=== PATIENT | male | born 1980 | race Caucasian/White ===

== ENCOUNTER 2018-04-13 10:37 | Inpatient (IN) | payer MEDICARE, OTHER ==
[~2018-04-13] VITALS: Ht 162.6 cm; Wt 79.9 kg
[~2018-04-13 10:37] MED LIST: CALC0.5C9 PO; CINA30TA2 PO; METH4TAB PO; OXYC-432 PO; SEVE800T8 PO; WARF7.5T PO; [UNRECOGNIZED DRUG - CODE] SQ
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
[2018-04-13] MEDS ORDERED: SODIUM CHLORIDE FLUSH 10ML SYR IVF ONE (11:30)
[2018-04-13 11:47] LABS: BASOPHILS % (AUTO) 2 % (0-1); EOSINOPHILS # (AUTO) 0.05 x10^3/uL (0-0.4); EOSINOPHILS % (AUTO) 1 % (1-7); LYMPHOCYTES # (AUTO) 0.68 x10^3/uL (1-3.4); LYMPHOCYTES % (AUTO) 11 % (22-44); MD NO; MEAN CORPUSCULAR HEMOGLOBIN 29.5 pg (27.5-34.5); MEAN CORPUSCULAR HGB CONC 34.3 g/dL (33.2-36.2); MEAN PLATELET VOLUME 8.2 fL (7.4-10.4); MONOCYTES # (AUTO) 0.61 x10^3/uL (0.2-0.8); MONOCYTES % (AUTO) 10 % (2-9); NEUTROPHILS # (AUTO) 4.76 x10^3/uL (1.8-6.8); NEUTROPHILS % (AUTO) 77 % (42-75); PLATELET COUNT 188 x10^3/uL (130-400); RED BLOOD COUNT 2.75 x10^6/uL (4.38-5.82)
[2018-04-13 11:58] LABS: ALBUMIN 3.3 g/dL (3.4-5.0); ANION GAP 9 mmol/L (5-15); CHLORIDE 90 mmol/L (98-107); CREATININE 9.56 mg/dL (0.7-1.3)
[2018-04-13 12:03] LABS: ALANINE AMINOTRANSFERASE 11 U/L (12-78); ALKALINE PHOSPHATASE 203 U/L (45-117); BILIRUBIN,TOTAL 0.7 mg/dL (0.2-1.0); TOTAL PROTEIN 8.2 g/dL (6.4-8.2)
[2018-04-13] MEDS ORDERED: DEXTROSE 50%, 50ML SYRINGE ONE (13:22)
[2018-04-13] MEDS ORDERED: CALCIUM CHLORIDE 10%, 10ML SYR ONE (13:22)
[2018-04-13] MEDS ORDERED: INSULIN REGULAR 100 UNITS/ML, 3ML VIAL ONE (13:23)
[2018-04-13] MEDS ORDERED: CALCIUM CHLORIDE 10%, 10ML SYR IVPush ONE (13:30)
[2018-04-13] MEDS ORDERED: SODIUM BICARB 8.4%, 50ML SYRINGE IVPush ONE (13:30)
[2018-04-13] MEDS ORDERED: SODIUM CHLORIDE FLUSH 10ML SYR IVF PRN (13:30)
[2018-04-13] MEDS ORDERED: INSULIN REGULAR 100 UNITS/ML, 3ML VIAL IVPush ONE (13:30)
[2018-04-13] MEDS ORDERED: DEXTROSE 50%, 50ML SYRINGE IVPush ONE (13:30)
[2018-04-13] MEDS ORDERED: SODIUM BICARBONATE 1 MEQ/ML, 50ML VIAL IVPush ONE (14:00)
[2018-04-13] MEDS ORDERED: MORPHINE SULFATE 4 MG/ML, 1ML ONE ×2 (14:28→15:18)
[2018-04-13] MEDS ORDERED: ONDANSETRON 2MG/ML, 2ML ONE (14:28)
[2018-04-13] MEDS: MORPHINE SULFATE 4 MG/ML, 1ML IVPush PRN ×4 (14:30→21:43)
[2018-04-13] MEDS ORDERED: ONDANSETRON 2MG/ML, 2ML IVPush ONE (14:30)
[2018-04-13] MEDS ORDERED: CEFTRIAXONE PMX 1GM/50ML 50 ML IV SCH (15:00)
[2018-04-13 15:19] LABS: INTERNATIONAL NORMALIZED RATIO 2.27 (0.93-1.1); PROTHROMBIN TIME 23.3 Seconds (9.6-11.5)
[2018-04-13] MEDS ORDERED: CEFTRIAXONE PMX 1GM/50ML 50 ML ONE (15:24)
[2018-04-13 16:06] VITALS: BP 117/76
[2018-04-13] MEDS: SEVELAMER CARBONATE 800MG TAB PO SCH (16:58)
[2018-04-13] MEDS: WARFARIN 5 MG TABLET PO-COUM SCH (16:58)
[2018-04-13] MEDS: OXYcodone/APAP 10/325MG TABLET PO PRN (16:58)
[2018-04-13] MEDS: DOXYCYCLINE 100 MG in DEXTROSE 5% 250 ML IV SCH (16:58)
[2018-04-13 21:01] VITALS: BP 126/84
[2018-04-13 21:39] VITALS: BP 107/71
[2018-04-13] MEDS: DARBEPOETIN 60 MCG/ML SQ SCH (21:42)
[2018-04-14] MEDS ORDERED: ACETAMINOPHEN 325 MG TABLET ONE (00:58)
[2018-04-14] MEDS: ACETAMINOPHEN 325 MG TABLET PO PRN (01:00)
[2018-04-14 01:25] VITALS: BP 103/67
[2018-04-14] MEDS: CEFTRIAXONE PMX 1GM/50ML 50 ML IV SCH ×2 (01:36→14:00)
[2018-04-14] MEDS: OXYcodone/APAP 10/325MG TABLET PO PRN ×2 (01:36→12:02)
[2018-04-14 06:18] LABS: CHLORIDE 91 mmol/L (98-107)
[2018-04-14 06:51] LABS: ANION GAP 13 mmol/L (5-15); CALCIUM 8.9 mg/dL (8.5-10.1); CREATININE 8.86 mg/dL (0.7-1.3)
[2018-04-14] MEDS: SEVELAMER CARBONATE 800MG TAB PO SCH ×3 (07:25→17:38)
[2018-04-14] MEDS: DOXYCYCLINE 100 MG in DEXTROSE 5% 250 ML IV SCH ×2 (07:25→19:56)
[2018-04-14 07:47] VITALS: BP 98/61
[2018-04-14 08:23] LABS: BASOPHILS # (AUTO) 0.04 x10^3/uL (0-0.1); BASOPHILS % (AUTO) 1 % (0-1); EOSINOPHILS # (AUTO) 0.06 x10^3/uL (0-0.4); EOSINOPHILS % (AUTO) 1 % (1-7); LYMPHOCYTES # (AUTO) 0.89 x10^3/uL (1-3.4); LYMPHOCYTES % (AUTO) 14 % (22-44); MD NO; MEAN CORPUSCULAR HEMOGLOBIN 29.1 pg (27.5-34.5); MEAN CORPUSCULAR HGB CONC 33.4 g/dL (33.2-36.2); MEAN CORPUSCULAR VOLUME 87.1 fL (81-97); MEAN PLATELET VOLUME 7.7 fL (7.4-10.4); MONOCYTES # (AUTO) 1.14 x10^3/uL (0.2-0.8); MONOCYTES % (AUTO) 18 % (2-9); NEUTROPHILS # (AUTO) 4.19 x10^3/uL (1.8-6.8); NEUTROPHILS % (AUTO) 66 % (42-75); PLATELET COUNT 184 x10^3/uL (130-400); RED BLOOD COUNT 2.73 x10^6/uL (4.38-5.82)
[2018-04-14 08:32] LABS: INTERNATIONAL NORMALIZED RATIO 3.73 (0.93-1.1); PROTHROMBIN TIME 37.6 Seconds (9.6-11.5)
[2018-04-14] MEDS: CALCITRIOL 0.25 MCG CAPSULE PO SCH (08:33)
[2018-04-14] MEDS: CINACALCET 30 MG TABLET PO SCH (08:33)
[2018-04-14 13:42] VITALS: BP 92/50
[2018-04-14] MEDS ORDERED: VANCOMYCIN PER PHARMACY MC PRN (14:00)
[2018-04-14] MEDS ORDERED: PHARMACOKINETIC MONITORING MC PRN (14:30)
[2018-04-14] MEDS ORDERED: VANCOMYCIN 1,600 MG in SODIUM CHLORIDE 0.9% 250 ML IV ONE (15:00)
[2018-04-14] MEDS: WARFARIN 5 MG TABLET PO-COUM SCH (17:39)
[2018-04-14 19:31] VITALS: BP 101/67
[2018-04-14] MEDS: MORPHINE SULFATE 4 MG/ML, 1ML IVPush PRN (20:14)
[2018-04-15] MEDS: MORPHINE SULFATE 4 MG/ML, 1ML IVPush PRN ×3 (00:25→19:43)
[2018-04-15 01:46] VITALS: BP 96/60
[2018-04-15] MEDS: ACETAMINOPHEN 325 MG TABLET PO PRN (02:03)
[2018-04-15] MEDS: CEFTRIAXONE PMX 1GM/50ML 50 ML IV SCH ×2 (02:03→13:59)
[2018-04-15 05:56] LABS: MEAN CORPUSCULAR HEMOGLOBIN 29.2 pg (27.5-34.5); MEAN CORPUSCULAR HGB CONC 33.7 g/dL (33.2-36.2); MEAN CORPUSCULAR VOLUME 86.6 fL (81-97); MEAN PLATELET VOLUME 8.1 fL (7.4-10.4); PLATELET COUNT 209 x10^3/uL (130-400); RED BLOOD COUNT 2.42 x10^6/uL (4.38-5.82); RED CELL DISTRIBUTION WIDTH 21.3 % (9.4-14.8)
[2018-04-15 06:00] LABS: CHLORIDE 94 mmol/L (98-107)
[2018-04-15 06:04] LABS: HCT (SEDRATE) 20.9 % (39.2-51.8)
[2018-04-15 06:21] LABS: % IRON SATURATION 30 % (20-55); ALANINE AMINOTRANSFERASE 10 U/L (12-78); ALBUMIN 2.7 g/dL (3.4-5.0); ALKALINE PHOSPHATASE 177 U/L (45-117); ANION GAP 9 mmol/L (5-15); BILIRUBIN,TOTAL 0.5 mg/dL (0.2-1.0); CALCIUM 8.7 mg/dL (8.5-10.1); CREATININE 7.42 mg/dL (0.7-1.3); IRON LEVEL 46 mcg/dL (65-175); TOTAL IRON BINDING CAPACITY 153 mcg/dL (250-450); TOTAL PROTEIN 7.3 g/dL (6.4-8.2)
[2018-04-15 06:32] LABS: BASOPHILS # (AUTO) 0.04 x10^3/uL (0-0.1); BASOPHILS % (AUTO) 1 % (0-1); EOSINOPHILS # (AUTO) 0.21 x10^3/uL (0-0.4); EOSINOPHILS % (AUTO) 3 % (1-7); LYMPHOCYTES # (AUTO) 1.12 x10^3/uL (1-3.4); LYMPHOCYTES % (AUTO) 17 % (22-44); MD SCAN; MONOCYTES # (AUTO) 1.13 x10^3/uL (0.2-0.8); MONOCYTES % (AUTO) 17 % (2-9); NEUTROPHILS # (AUTO) 4.32 x10^3/uL (1.8-6.8); NEUTROPHILS % (AUTO) 63 % (42-75)
[2018-04-15] MEDS: DOXYCYCLINE 100 MG in DEXTROSE 5% 250 ML IV SCH ×2 (08:42→22:24)
[2018-04-15] MEDS: CALCITRIOL 0.25 MCG CAPSULE PO SCH (08:43)
[2018-04-15] MEDS: CINACALCET 30 MG TABLET PO SCH (08:43)
[2018-04-15] MEDS: SEVELAMER CARBONATE 800MG TAB PO SCH ×3 (08:43→17:06)
[2018-04-15 08:59] VITALS: BP 92/59
[2018-04-15 14:01] VITALS: BP_SYST 117; BP_SYST 94; BP_DIAS 60; BP_DIAS 76
[2018-04-15] MEDS ORDERED: LIDOCAINE-MPF 1%, 2ML ONE (17:36)
[2018-04-15 19:56] VITALS: BP 125/79
[2018-04-15 22:07] LABS: INTERNATIONAL NORMALIZED RATIO 4.89 (0.93-1.1); PROTHROMBIN TIME 48.8 Seconds (9.6-11.5)
[2018-04-15] MEDS ORDERED: HOLD MEDICATION MC PRN (22:30)
[2018-04-16] MEDS: MORPHINE SULFATE 4 MG/ML, 1ML IVPush PRN ×2 (00:59→06:08)
[2018-04-16] MEDS: CEFTRIAXONE PMX 1GM/50ML 50 ML IV SCH (00:59)
[2018-04-16 01:24] VITALS: BP 108/73
[2018-04-16 05:21] LABS: BASOPHILS # (AUTO) 0.04 x10^3/uL (0-0.1); BASOPHILS % (AUTO) 1 % (0-1); EOSINOPHILS # (AUTO) 0.28 x10^3/uL (0-0.4); EOSINOPHILS % (AUTO) 5 % (1-7); LYMPHOCYTES % (AUTO) 20 % (22-44); MD NO; MEAN CORPUSCULAR HGB CONC 33.6 g/dL (33.2-36.2); MEAN CORPUSCULAR VOLUME 86.4 fL (81-97); MEAN PLATELET VOLUME 7.7 fL (7.4-10.4); MONOCYTES # (AUTO) 0.64 x10^3/uL (0.2-0.8); MONOCYTES % (AUTO) 12 % (2-9); NEUTROPHILS # (AUTO) 3.44 x10^3/uL (1.8-6.8); NEUTROPHILS % (AUTO) 63 % (42-75); PLATELET COUNT 228 x10^3/uL (130-400); RED BLOOD COUNT 2.75 x10^6/uL (4.38-5.82); RED CELL DISTRIBUTION WIDTH 20.5 % (9.4-14.8)
[2018-04-16 05:25] LABS: ANION GAP 8 mmol/L (5-15); CALCIUM 8.5 mg/dL (8.5-10.1); CHLORIDE 92 mmol/L (98-107)
[2018-04-16 05:30] LABS: VANCOMYCIN,RANDOM 28.1 mcg/mL
[2018-04-16 05:34] LABS: PROTHROMBIN TIME 52.3 Seconds (9.6-11.5)
[2018-04-16 05:35] LABS: INTERNATIONAL NORMALIZED RATIO 5.26 (0.93-1.1)
[2018-04-16] MEDS ORDERED: PHYTONADIONE 5 MG TABLET PO ONE (06:00)
[2018-04-16 08:00] VITALS: BP 112/74
[2018-04-16] MEDS: SEVELAMER CARBONATE 800MG TAB PO SCH ×3 (08:54→18:02)
[2018-04-16] MEDS: CINACALCET 30 MG TABLET PO SCH (08:54)
[2018-04-16] MEDS: CALCITRIOL 0.25 MCG CAPSULE PO SCH (08:54)
[2018-04-16] MEDS: WARFARIN MECH. VALVE PROTOCOL 2.5 to 3.5 XX SCH (09:00)
[2018-04-16] MEDS ORDERED: ERGOCALCIFEROL 50,000 UNIT CAPSULE PO SCH (11:00)
[2018-04-16 14:00] VITALS: BP 122/78
[2018-04-16 18:25] VITALS: BP 119/76
[2018-04-17 01:20] VITALS: BP 111/72
[2018-04-17] MEDS: OXYcodone/APAP 10/325MG TABLET PO PRN ×2 (01:49→19:33)
[2018-04-17 06:24] LABS: INTERNATIONAL NORMALIZED RATIO 2.15 (0.93-1.1); MEAN CORPUSCULAR HGB CONC 32.4 g/dL (33.2-36.2); MEAN CORPUSCULAR VOLUME 86.3 fL (81-97); MEAN PLATELET VOLUME 7.4 fL (7.4-10.4); PLATELET COUNT 261 x10^3/uL (130-400); PROTHROMBIN TIME 22.1 Seconds (9.6-11.5); RED CELL DISTRIBUTION WIDTH 20.7 % (9.4-14.8)
[2018-04-17 06:27] LABS: ALBUMIN 2.7 g/dL (3.4-5.0); ANION GAP 11 mmol/L (5-15); CALCIUM 8.4 mg/dL (8.5-10.1); CHLORIDE 92 mmol/L (98-107)
[2018-04-17 06:50] LABS: BASOPHILS # (AUTO) 0.05 x10^3/uL (0-0.1); BASOPHILS % (AUTO) 1 % (0-1); EOSINOPHILS # (AUTO) 0.23 x10^3/uL (0-0.4); EOSINOPHILS % (AUTO) 5 % (1-7); LYMPHOCYTES # (AUTO) 1.07 x10^3/uL (1-3.4); LYMPHOCYTES % (AUTO) 24 % (22-44); MD SCAN; MONOCYTES # (AUTO) 0.42 x10^3/uL (0.2-0.8); MONOCYTES % (AUTO) 10 % (2-9); NEUTROPHILS # (AUTO) 2.61 x10^3/uL (1.8-6.8); NEUTROPHILS % (AUTO) 60 % (42-75)
[2018-04-17 07:47] VITALS: BP 157/90
[2018-04-17] MEDS: CALCITRIOL 0.25 MCG CAPSULE PO SCH (08:38)
[2018-04-17] MEDS: CINACALCET 30 MG TABLET PO SCH (08:38)
[2018-04-17] MEDS: WARFARIN MECH. VALVE PROTOCOL 2.5 to 3.5 XX SCH (08:39)
[2018-04-17] MEDS: SEVELAMER CARBONATE 800MG TAB PO SCH ×2 (12:25→17:07)
[2018-04-17 13:30] LABS: BASOPHILS # (AUTO) 0.04 x10^3/uL (0-0.1); BASOPHILS % (AUTO) 1 % (0-1); EOSINOPHILS # (AUTO) 0.17 x10^3/uL (0-0.4); EOSINOPHILS % (AUTO) 4 % (1-7); LYMPHOCYTES # (AUTO) 0.77 x10^3/uL (1-3.4); LYMPHOCYTES % (AUTO) 18 % (22-44); MD NO; MEAN CORPUSCULAR HEMOGLOBIN 28.6 pg (27.5-34.5); MEAN CORPUSCULAR HGB CONC 33.7 g/dL (33.2-36.2); MEAN CORPUSCULAR VOLUME 84.8 fL (81-97); MEAN PLATELET VOLUME 7.2 fL (7.4-10.4); MONOCYTES # (AUTO) 0.33 x10^3/uL (0.2-0.8); MONOCYTES % (AUTO) 7 % (2-9); NEUTROPHILS % (AUTO) 70 % (42-75); PLATELET COUNT 268 x10^3/uL (130-400); RED BLOOD COUNT 2.84 x10^6/uL (4.38-5.82)
[2018-04-17 14:45] VITALS: BP 115/75
[2018-04-17] MEDS ORDERED: WARFARIN 5 MG TABLET PO-COUM SCH (18:00)
[2018-04-17 19:32] VITALS: BP 111/72
[2018-04-18 02:28] VITALS: BP 107/73
[2018-04-18 05:51] LABS: INTERNATIONAL NORMALIZED RATIO 1.49 (0.93-1.1); PROTHROMBIN TIME 15.6 Seconds (9.6-11.5)
[2018-04-18 05:54] LABS: ALBUMIN 2.6 g/dL (3.4-5.0); ANION GAP 9 mmol/L (5-15); CALCIUM 8.1 mg/dL (8.5-10.1); CHLORIDE 96 mmol/L (98-107); CREATININE 7.29 mg/dL (0.7-1.3)
[2018-04-18 06:02] LABS: VANCOMYCIN,RANDOM 17.7 mcg/mL
[2018-04-18 06:14] LABS: MEAN CORPUSCULAR VOLUME 85.2 fL (81-97); PLATELET COUNT 234 x10^3/uL (130-400); RED CELL DISTRIBUTION WIDTH 20.4 % (9.4-14.8)
[2018-04-18 06:36] LABS: HCT (SEDRATE) 22.1 % (39.2-51.8)
[2018-04-18 06:45] LABS: BASOPHILS # (AUTO) 0.02 x10^3/uL (0-0.1); BASOPHILS % (AUTO) 1 % (0-1); EOSINOPHILS # (AUTO) 0.14 x10^3/uL (0-0.4); EOSINOPHILS % (AUTO) 4 % (1-7); LYMPHOCYTES # (AUTO) 0.92 x10^3/uL (1-3.4); LYMPHOCYTES % (AUTO) 25 % (22-44); MD MORPH REVIEW ONLY; MONOCYTES # (AUTO) 0.34 x10^3/uL (0.2-0.8); MONOCYTES % (AUTO) 9 % (2-9); NEUTROPHILS # (AUTO) 2.32 x10^3/uL (1.8-6.8); NEUTROPHILS % (AUTO) 62 % (42-75)
[2018-04-18 06:46] LABS: <PLATELET ESTIMATE> ADEQUATE; <PLT MORPHOLOGY> NORMAL PLT MORPH; ANISOCYTOSIS 1+; POLYCHROMASIA 1+
[2018-04-18 07:15] VITALS: BP 129/84
[2018-04-18] MEDS: CALCITRIOL 0.25 MCG CAPSULE PO SCH (08:41)
[2018-04-18] MEDS: CINACALCET 30 MG TABLET PO SCH (08:41)
[2018-04-18] MEDS: SEVELAMER CARBONATE 800MG TAB PO SCH ×3 (08:41→17:00)
[2018-04-18] MEDS: WARFARIN MECH. VALVE PROTOCOL 2.5 to 3.5 XX SCH (09:00)
[2018-04-18 13:38] VITALS: BP 92/62
[2018-04-18] MEDS: DAPTOMYCIN 500 MG in SODIUM CHLORIDE 0.9% 100 ML IVPB SCH (14:09)
[2018-04-18] MEDS: MORPHINE SULFATE 4 MG/ML, 1ML IVPush PRN ×3 (14:42→21:57)
[2018-04-18] MEDS ORDERED: VANCOMYCIN 1,600 MG in SODIUM CHLORIDE 0.9% 250 ML IV ONE (15:00)
[2018-04-18] MEDS ORDERED: WARFARIN 5 MG TABLET PO-COUM ONE (18:00)
[2018-04-18 19:25] VITALS: BP 111/73
[2018-04-18] MEDS: OXYcodone/APAP 10/325MG TABLET PO PRN (19:30)
[2018-04-18 21:49] VITALS: BP 131/78
[2018-04-19 02:40] VITALS: BP 110/73
[2018-04-19] MEDS: MORPHINE SULFATE 4 MG/ML, 1ML IVPush PRN ×5 (02:55→19:58)
[2018-04-19 06:36] LABS: BASOPHILS # (AUTO) 0.03 x10^3/uL (0-0.1); BASOPHILS % (AUTO) 1 % (0-1); EOSINOPHILS # (AUTO) 0.13 x10^3/uL (0-0.4); EOSINOPHILS % (AUTO) 3 % (1-7); LYMPHOCYTES # (AUTO) 1.02 x10^3/uL (1-3.4); LYMPHOCYTES % (AUTO) 24 % (22-44); MD NO; MEAN CORPUSCULAR HEMOGLOBIN 29.1 pg (27.5-34.5); MEAN CORPUSCULAR VOLUME 85.8 fL (81-97); MEAN PLATELET VOLUME 7.1 fL (7.4-10.4); MONOCYTES # (AUTO) 0.32 x10^3/uL (0.2-0.8); MONOCYTES % (AUTO) 8 % (2-9); NEUTROPHILS # (AUTO) 2.79 x10^3/uL (1.8-6.8); NEUTROPHILS % (AUTO) 65 % (42-75); PLATELET COUNT 227 x10^3/uL (130-400); RED BLOOD COUNT 2.74 x10^6/uL (4.38-5.82); RED CELL DISTRIBUTION WIDTH 19.9 % (9.4-14.8)
[2018-04-19 06:43] LABS: INTERNATIONAL NORMALIZED RATIO 1.36 (0.93-1.1); PROTHROMBIN TIME 14.2 Seconds (9.6-11.5)
[2018-04-19 06:48] LABS: CHLORIDE 98 mmol/L (98-107)
[2018-04-19 06:53] LABS: % IRON SATURATION 50 % (20-55); ANION GAP 9 mmol/L (5-15); CALCIUM 9.1 mg/dL (8.5-10.1); CREATININE 5.66 mg/dL (0.7-1.3); IRON LEVEL 90 mcg/dL (65-175); TOTAL IRON BINDING CAPACITY 181 mcg/dL (250-450)
[2018-04-19] MEDS: SEVELAMER CARBONATE 800MG TAB PO SCH ×3 (09:06→15:34)
[2018-04-19] MEDS: WARFARIN MECH. VALVE PROTOCOL 2.5 to 3.5 XX SCH (09:07)
[2018-04-19 09:58] VITALS: BP 136/55
[2018-04-19] MEDS ORDERED: WARFARIN 10 MG TABLET PO-COUM ONE (12:00)
[2018-04-19] MEDS: CINACALCET 30 MG TABLET PO SCH (15:35)
[2018-04-19] MEDS: CALCITRIOL 0.25 MCG CAPSULE PO SCH (15:42)
[2018-04-19 17:11] VITALS: BP 101/64
[2018-04-19 19:33] VITALS: BP 138/97
[2018-04-20] MEDS: MORPHINE SULFATE 4 MG/ML, 1ML IVPush PRN ×2 (00:23→05:29)
[2018-04-20 02:54] VITALS: BP 125/79
[2018-04-20 06:37] LABS: BASOPHILS # (AUTO) 0.05 x10^3/uL (0-0.1); BASOPHILS % (AUTO) 1 % (0-1); EOSINOPHILS # (AUTO) 0.24 x10^3/uL (0-0.4); EOSINOPHILS % (AUTO) 5 % (1-7); LYMPHOCYTES # (AUTO) 1.04 x10^3/uL (1-3.4); LYMPHOCYTES % (AUTO) 21 % (22-44); MD NO; MEAN CORPUSCULAR HEMOGLOBIN 29.4 pg (27.5-34.5); MEAN CORPUSCULAR HGB CONC 34.4 g/dL (33.2-36.2); MEAN CORPUSCULAR VOLUME 85.3 fL (81-97); MEAN PLATELET VOLUME 6.3 fL (7.4-10.4); MONOCYTES # (AUTO) 0.34 x10^3/uL (0.2-0.8); MONOCYTES % (AUTO) 7 % (2-9); NEUTROPHILS # (AUTO) 3.28 x10^3/uL (1.8-6.8); NEUTROPHILS % (AUTO) 66 % (42-75); PLATELET COUNT 243 x10^3/uL (130-400); RED BLOOD COUNT 2.66 x10^6/uL (4.38-5.82); RED CELL DISTRIBUTION WIDTH 20.2 % (9.4-14.8)
[2018-04-20 06:44] LABS: ANION GAP 11 mmol/L (5-15); CALCIUM 8.8 mg/dL (8.5-10.1); CHLORIDE 98 mmol/L (98-107)
[2018-04-20 06:45] LABS: INTERNATIONAL NORMALIZED RATIO 1.67 (0.93-1.1); PROTHROMBIN TIME 17.4 Seconds (9.6-11.5)
[2018-04-20] MEDS: SEVELAMER CARBONATE 800MG TAB PO SCH ×3 (08:00→18:04)
[2018-04-20] MEDS: WARFARIN MECH. VALVE PROTOCOL 2.5 to 3.5 XX SCH (08:29)
[2018-04-20 08:41] VITALS: BP 111/72
[2018-04-20] MEDS ORDERED: PROPOFOL 10 MG/ML, 20ML ONE (11:56)
[2018-04-20] MEDS: CINACALCET 30 MG TABLET PO SCH (13:14)
[2018-04-20] MEDS: CALCITRIOL 0.25 MCG CAPSULE PO SCH (13:14)
[2018-04-20 13:56] VITALS: BP 135/79
[2018-04-20] MEDS: OXYcodone/APAP 10/325MG TABLET PO PRN ×3 (16:19→23:39)
[2018-04-20] MEDS ORDERED: WARFARIN 10 MG TABLET PO-COUM ONE (18:00)
[2018-04-20] MEDS: DAPTOMYCIN 500 MG in SODIUM CHLORIDE 0.9% 100 ML IVPB SCH (20:10)
[2018-04-20] MEDS: DARBEPOETIN 60 MCG/ML SQ SCH (21:18)
[2018-04-21] MEDS: DIPHENHYDRAMINE 25 MG CAPSULE PO PRN ×3 (01:28→22:03)
[2018-04-21 01:35] VITALS: BP 109/65
[2018-04-21 05:48] LABS: INTERNATIONAL NORMALIZED RATIO 2.65 (0.93-1.1); PROTHROMBIN TIME 27.1 Seconds (9.6-11.5)
[2018-04-21 05:54] LABS: ANION GAP 9 mmol/L (5-15); CALCIUM 8.8 mg/dL (8.5-10.1); CHLORIDE 99 mmol/L (98-107); CREATININE 5.81 mg/dL (0.7-1.3)
[2018-04-21] MEDS: SEVELAMER CARBONATE 800MG TAB PO SCH ×3 (08:00→16:47)
[2018-04-21 08:08] VITALS: BP 123/72
[2018-04-21 08:24] LABS: MD YES; MEAN CORPUSCULAR HEMOGLOBIN 28.6 pg (27.5-34.5); MEAN CORPUSCULAR HGB CONC 32.9 g/dL (33.2-36.2); MEAN CORPUSCULAR VOLUME 86.8 fL (81-97); PLATELET COUNT 277 x10^3/uL (130-400); RED BLOOD COUNT 3.01 x10^6/uL (4.38-5.82); RED CELL DISTRIBUTION WIDTH 20.3 % (9.4-14.8)
[2018-04-21] MEDS: WARFARIN MECH. VALVE PROTOCOL 2.5 to 3.5 XX SCH (08:41)
[2018-04-21] MEDS: CINACALCET 30 MG TABLET PO SCH (08:41)
[2018-04-21] MEDS: CALCITRIOL 0.25 MCG CAPSULE PO SCH (08:41)
[2018-04-21 10:02] LABS: BASOPHILS # (AUTO) 0.05 x10^3/uL (0-0.1); BASOPHILS % (AUTO) 1 % (0-1); EOSINOPHILS # (AUTO) 0.34 x10^3/uL (0-0.4); EOSINOPHILS % (AUTO) 6 % (1-7); LYMPHOCYTES # (AUTO) 1.31 x10^3/uL (1-3.4); LYMPHOCYTES % (AUTO) 22 % (22-44); MONOCYTES # (AUTO) 0.37 x10^3/uL (0.2-0.8); MONOCYTES % (AUTO) 6 % (2-9); NEUTROPHILS # (AUTO) 3.97 x10^3/uL (1.8-6.8); NEUTROPHILS % (AUTO) 66 % (42-75)
[2018-04-21 10:41] LABS: BAND#(MANUAL) 0.06 x10^3/uL; BANDS%(MANUAL) 1 % (0-7); BASOS#(MANUAL) 0.12 x10^3/uL (0-0.1); BASOS% (MANUAL) 2 % (0-1); EOS% (MANUAL) 5 % (1-7); LYMPH#(MANUAL) 1.32 x10^3/uL (1-3.4); LYMPHS% (MANUAL) 22 % (22-44); MONOS% (MANUAL) 5 % (2-9)
[2018-04-21 10:43] LABS: SEGS% (MANUAL) 65 % (42-75)
[2018-04-21 10:44] LABS: ANISOCYTOSIS 1+; POLYCHROMASIA 1+
[2018-04-21 10:45] LABS: <PLATELET ESTIMATE> ADEQUATE; <PLT MORPHOLOGY> NORMAL PLT MORPH
[2018-04-21] MEDS ORDERED: WARFARIN 5 MG TABLET PO-COUM ONE (18:00)
[2018-04-21 19:11] VITALS: BP 104/72
[2018-04-21] MEDS: OXYcodone/APAP 10/325MG TABLET PO PRN (22:12)
[2018-04-22 02:07] VITALS: BP 103/71
[2018-04-22 07:21] LABS: INTERNATIONAL NORMALIZED RATIO 3.39 (0.93-1.1); PROTHROMBIN TIME 34.3 Seconds (9.6-11.5)
[2018-04-22 08:00] VITALS: BP 166/69
[2018-04-22] MEDS: SEVELAMER CARBONATE 800MG TAB PO SCH ×3 (08:00→17:00)
[2018-04-22] MEDS: CINACALCET 30 MG TABLET PO SCH (08:58)
[2018-04-22] MEDS: CALCITRIOL 0.25 MCG CAPSULE PO SCH (08:59)
[2018-04-22] MEDS: WARFARIN MECH. VALVE PROTOCOL 2.5 to 3.5 XX SCH (09:00)
[2018-04-22 13:13] VITALS: BP 105/69
[2018-04-22] MEDS ORDERED: WARFARIN 1 MG TABLET PO-COUM ONE (17:19)
[2018-04-22] MEDS ORDERED: WARFARIN 2 MG TABLET PO-COUM ONE (17:19)
[2018-04-22] MEDS: DAPTOMYCIN 500 MG in SODIUM CHLORIDE 0.9% 100 ML IVPB SCH (17:36)
[2018-04-22] MEDS ORDERED: WARFARIN 2.5 MG TABLET PO-COUM ONE (18:00)
== END 2018-04-22 18:40 | disposition home or self-care (01) | DRG 314 ==
LOC: ED 13:21 → EDIP 13:22 → ED 13:45 → 4WST 15:49
PROVIDERS: ADMIT Internal Medicine; ATTEND Internal Medicine
PROC: 5A1D70Z Performance of Urinary Filtration, Intermittent, Less than 6 Hours Per Day (ICD-10-PCS; 2018-04-13)
PROC: 5A1D70Z Performance of Urinary Filtration, Intermittent, Less than 6 Hours Per Day (ICD-10-PCS; 2018-04-14)
PROC: 3E10X8Z Irrigation of Skin and Mucous Membranes using Irrigating Substance (ICD-10-PCS; principal; 2018-04-15)
PROC: 5A1D70Z Performance of Urinary Filtration, Intermittent, Less than 6 Hours Per Day (ICD-10-PCS; 2018-04-17)
PROC: 5A1D70Z Performance of Urinary Filtration, Intermittent, Less than 6 Hours Per Day (ICD-10-PCS; 2018-04-18)
PROC: 5A1D70Z Performance of Urinary Filtration, Intermittent, Less than 6 Hours Per Day (ICD-10-PCS; 2018-04-20)
PROC: 02HV33Z Insertion of Infusion Device into Superior Vena Cava, Percutaneous Approach (ICD-10-PCS; 2018-04-22)
PROC: B5181ZA Fluoroscopy of Superior Vena Cava using Low Osmolar Contrast, Guidance (ICD-10-PCS; 2018-04-22)
PROC: B548ZZA Ultrasonography of Superior Vena Cava, Guidance (ICD-10-PCS; 2018-04-22)
PROC: 5A1D70Z Performance of Urinary Filtration, Intermittent, Less than 6 Hours Per Day (ICD-10-PCS; 2018-04-22)
DX: T82.7XXA Infection and inflammatory reaction due to other cardiac and vascular devices, implants and grafts, initial encounter (principal); A41.02 Sepsis due to Methicillin resistant Staphylococcus aureus; J96.01 Acute respiratory failure with hypoxia; N18.6 End stage renal disease; J18.9 Pneumonia, unspecified organism; J81.0 Acute pulmonary edema; I12.0 Hypertensive chronic kidney disease with stage 5 chronic kidney disease or end stage renal disease; D68.59 Other primary thrombophilia; E87.1 Hypo-osmolality and hyponatremia; I87.1 Compression of vein; T81.31XA Disruption of external operation (surgical) wound, not elsewhere classified, initial encounter; Z94.0 Kidney transplant status; T82.848A Pain due to vascular prosthetic devices, implants and grafts, initial encounter; Z88.0 Allergy status to penicillin; Z88.8 Allergy status to other drugs, medicaments and biological substances; Z91.048 Other nonmedicinal substance allergy status; B96.89 Other specified bacterial agents as the cause of diseases classified elsewhere; D63.1 Anemia in chronic kidney disease; E21.3 Hyperparathyroidism, unspecified; E87.5 Hyperkalemia; E88.09 Other disorders of plasma-protein metabolism, not elsewhere classified; G25.81 Restless legs syndrome; G89.4 Chronic pain syndrome; Y83.2 Surgical operation with anastomosis, bypass or graft as the cause of abnormal reaction of the patient, or of later complication, without mention of misadventure at the time of the procedure; N25.0 Renal osteodystrophy; Z79.01 Long term (current) use of anticoagulants; Z79.2 Long term (current) use of antibiotics; Z79.4 Long term (current) use of insulin; Z87.891 Personal history of nicotine dependence; Z88.1 Allergy status to other antibiotic agents; Z99.2 Dependence on renal dialysis; Y92.89 Other specified places as the place of occurrence of the external cause
CPT/HCPCS: 36415; 36573; 71045; 71250; 80048; 80053; 80069; 80202; 82306; 82550; 82728; 83540; 83550; 83605; 83735; 83880; 83970; 84100; 84145; 85025; 85610; 85651; 86140; 86704; 86706; 86803; 87040; 87077; 87147; 87186; 87340; 93005; 93306; 93312; 93325; 96374; 96375; 99285; G0378; J0696; J0878; J0881; J2405; J2704; J3370; J7060; C1751; J7050; Q0163